=== PATIENT | female | born 1965 | race African-American/Black ===

== ENCOUNTER 2021-03-25 13:50 | Outpatient (RCR) | payer MEDICARE, MEDICAID, SELFPAY | END 2021-03-27 12:16 | disposition home or self-care (01) | LOC: HO.WCC 13:50 | PROVIDERS: PCP Family Medicine; Visit Provider Physician Assistant | DX: E11.65 Type 2 diabetes mellitus with hyperglycemia (principal); E66.01 Morbid (severe) obesity due to excess calories; I10 Essential (primary) hypertension; I63.9 Cerebral infarction, unspecified; G81.94 Hemiplegia, unspecified affecting left nondominant side; Z99.3 Dependence on wheelchair; Z87.891 Personal history of nicotine dependence; Z79.84 Long term (current) use of oral hypoglycemic drugs | CPT/HCPCS: 99213 ==